=== PATIENT | female | born 1980 | race Caucasian/White ===

== ENCOUNTER 2016-09-20 11:41 | Outpatient (CLI) | payer OTHER ==
--- NOTE | 2016-09-23 08:58 | RAD ---
TWO VIEWS LEFT FOREARM 09/20/16 HISTORY: Fall. Left arm pain. AP and lateral views left forearm is obtained. The left forearm is unremarkable. No evidence of frac ture, subluxations or bony lesions seen. IMPRESSION: Normal two views left forearm. POS: [facility]
--- NOTE | 2016-09-23 09:01 | RAD ---
THREE VIEWS OF THE LEFT WRIST INDICATIONS: Fall with left wrist pain. COMPARISON: None. FINDINGS: No acute fracture or subluxation is evident. Carpal alignment is preserved. Soft tissues have a no rmal appearance. IMPRESSION: No acute osseous abnormality. POS: [facility]
== END 2016-09-20 11:42 | disposition home or self-care (01) ==
LOC: NAV RAD 11:41
PROVIDERS: ATTEND Family Medicine
DX: M25.532 Pain in left wrist (principal)

== ENCOUNTER 2018-12-31 11:07 | Outpatient (CLI) | payer OTHER ==
--- NOTE | 2018-12-31 11:28 | RAD ---
XR Foot Rt 3 View STANDARD HISTORY: Right foot pain, plantar fasciitis FINDINGS: No fracture or dislocation is identified. Small calcaneal spurs are present.
== END 2018-12-31 11:08 | disposition home or self-care (01) ==
LOC: NAV RAD 11:07
PROVIDERS: ATTEND Family Medicine
DX: M72.2 Plantar fascial fibromatosis (principal)

== ENCOUNTER 2021-04-02 10:08 | Outpatient (CLI) | payer BC ==
[~2021-04-02 10:08] MED LIST: Iopamidol 370 76% 100 ML VIAL ONE
== END 2021-04-02 10:09 | disposition home or self-care (01) ==
LOC: NAV CT 10:08
PROVIDERS: ATTEND Family Medicine
DX: R10.31 Right lower quadrant pain (principal); N83.201 Unspecified ovarian cyst, right side
CPT/HCPCS: 74177; Q9967

== ENCOUNTER 2021-07-11 10:12 | Outpatient (CLI) | payer BC | END 2021-07-11 10:13 | disposition home or self-care (01) | LOC: NAV RAD 10:12 | PROVIDERS: ATTEND Family Medicine | DX: J40 Bronchitis, not specified as acute or chronic (principal) | CPT/HCPCS: 71046 ==

== ENCOUNTER 2023-11-22 01:30 | Emergency (ER) | payer BC ==
[2023-11-22] MEDS ORDERED: Ibuprofen 200 MG TAB ONE (02:02)
[2023-11-22 02:16] LABS: #Basophils 0.1 thou/uL (0.0-0.2); #Eosinphils 0.2 thou/uL (0.0-0.7); #Lymphocytes 1.5 thou/uL (1.20-3.40); #Monocytes 0.5 thou/uL (0.11-0.59); #Neutrophils 4.3 thou/uL (1.40-6.50); %Basophils 1.7 % (0.0-1.0); %Eosinophils 2.5 % (0.0-10.0); %Lymphocytes 23.3 % (21.0-51.0); %Monocytes 7.9 % (0.0-10.0); %Neutrophils 64.6 % (42.0-75.0); Hematocrit 30.7 % (36.0-47.0); Hemoglobin 9.8 g/dL (12.0-16.0); Mean Corpuscular HGB CONC 32.1 g/dL (32.0-36.0); Mean Corpuscular Hemoglobin 29.2 pg (27.0-31.0); Mean Platelet Volume 8.2 fL (7.4-10.4); Platelet Count 263 10x3/uL (130-400); Red Blood Cell (RBC) Count 3.37 mill/uL (4.20-5.40); White Blood Cell (WBC) Count 6.6 10x3/uL (4.8-10.8)
[2023-11-22 02:22] LABS: Anion Gap 12 mmol/L (10-20); BUN (Urea Nitrogen) 14 mg/dL (7.0-18.7); Calc. Creatinine Clearance 0 mL/min (70-130); Calcium 8.7 mg/dL (7.8-10.44); Carbon Dioxide 25 mmol/L (22-29); Chloride 107 mmol/L (98-107); Estimated GFR 114; Glucose 97 mg/dL (70-105); Sodium 140 mmol/L (136-145)
== END 2023-11-22 02:53 | disposition home or self-care (01) ==
LOC: NAV ERS 01:30
DX: M19.90 Unspecified osteoarthritis, unspecified site (principal); D64.9 Anemia, unspecified
CPT/HCPCS: 80048; 83880; 85025; 86140; 99284